=== PATIENT | female | born 1995 | race Caucasian/White ===

== ENCOUNTER 2021-06-04 08:30 | Emergency (ER) | payer OTHER ==
[~2021-06-04] VITALS: Ht 165.1 cm; Wt 81.7 kg
[~2021-06-04 08:30] MED LIST: BIRTH CONTROL; LAMICTAL XR100 MG; ZOLOFT 50 MG TA50 M1 PO
[2021-06-04] MEDS ORDERED: DEPO-PROVE150 MG/11 IM (08:42)
[2021-06-04] MEDS ORDERED: LOREEV XR2 MG PO (08:42)
[2021-06-04 09:47] VITALS: BP 125/80
== END 2021-06-04 09:48 | disposition home or self-care (01) ==
LOC: M.ERS 08:30
DX: F07.81 Postconcussional syndrome (principal); M54.6 Pain in thoracic spine; F41.9 Anxiety disorder, unspecified; F17.210 Nicotine dependence, cigarettes, uncomplicated; Z79.899 Other long term (current) drug therapy